=== PATIENT | female | born 1990 | race Hispanic/Latino ===

== ENCOUNTER 2020-11-21 16:39 | Emergency (ER) | payer BC ==
[~2020-11-21] VITALS: Ht 170.2 cm; Wt 74.8 kg
[2020-11-21] MEDS ORDERED: CYCLOBENZAPRINE5 MG PO (17:15)
[2020-11-21] MEDS ORDERED: PREDNISONE20 MG PO (17:15)
== END 2020-11-21 17:28 | disposition home or self-care (01) ==
LOC: FSED 17:05
DX: M54.41 Lumbago with sciatica, right side (principal); S39.012A Strain of muscle, fascia and tendon of lower back, initial encounter
CPT/HCPCS: 99282